=== PATIENT | male | born 1955 | race Caucasian/White ===

== ENCOUNTER 2021-02-01 10:31 | Inpatient (IN) | payer MEDICARE, SELFPAY ==
[2021-02-01] VITALS (15 sets, daily range): BP systolic 109–147; BP diastolic 62–83; PULSE 82–120; RESP 16–22; TEMP 37–37.3; O2SAT 92–96; BMI 35.4; BMI 35.6; BMI 36.3
--- NOTE | 2021-02-01 | IR_ITS ---
APPROVED REPORT Patient Location: Inpatient Pupil Personnel Services Director: SIMBA Dixon RT (R) PROCEDURES Left heart catheterization Left ventriculogram Selective coronary angiogram Selective engage left internal mammary artery Drug-eluting stent deployment to the proximal mid and distal dominant right coronary Attempted angioplasty of the ramus intermedius INDICATION Acute non-ST elevation myocardial infarction, Coronary artery disease, History of coronary bypass surgery Informed consent was obtained prior to the procedure. COMPLICATIONS None Estimated Blood Loss: Less than 10 mls TECHNIQUE One percent lidocaine used to anesthetize the right groin. The right femoral artery was accessed via the Seldinger technique and a 5 Kosovan sheath was placed in the right femoral artery. A JL 5 JR4 catheter used to perform left heart catheterization left ventriculogram selective coronary angiography as well as selective engage left internal mammary artery. At the end the diagnostic angiogram therapeutic heparin was administered and the 5 Kosovan sheath was exchanged for a 6 Kosovan sheath. A JR4 guide catheter was placed in the right coronary artery and a Choice PT wire was placed distally. A 3 mm x 38 mm resolute [place] stent was deployed at 20 and then 24 jono reducing the stenosis. An additional 3.5 x 12 mm resolute [place] stent was then placed distal to the first stent and deployed at 20 jono. The balloon was brought back and deployed at 20 and 24 jono up and down the 3 mm stent. Following this a 4 mm x 22 mm resolute [place] stent was deployed at 20 jono reducing the stenosis to 0%. The balloon was then advanced and deployed at 20 jono along the mid right coronary artery. After achieving excellent angiographic results with MARIFER-3 flow before and after the procedure the apparatus was removed and an EBU 4 guide catheter was placed in the left main artery. Initially a choice PT extra-support wire was used to traverse the subtotal occlusion of the ramus intermedius followed by a whisper medium support wire. The wire was placed in the proximal segment and a 1.5 x 12 mm balloon was then advanced in order to provide additional support and try to push through the subtotal occlusion. Despite an aggressive effort to revascularize ramus intermedius it was decided this vessel was not appropriate for ongoing intervention. At this point the apparatus was removed. The groin was reprepped gloves were changed sheath was removed good hemostasis was achieved using Perclose device patient was transferred to the postop coronary stable condition ANGIOGRAPHIC RESULTS The left main artery Is a distal 30% stenosis The left anterior descending artery Ostially occluded The circumflex artery Is codominant and gives rise to a high ramus intermedius +4 moderate sized obtuse marginal arteries. Ramus intermedius has a proximal calcified greater than 90% stenosis while the remaining vessels have mild 10 to 20% stenoses The right coronary artery Is a large dominant vessel has proximal 20 to 30% stenosis in mid vessel 70 to 80% stenosis with additional 50% calcified stenoses The HU ventriculogram reveals 55% The left ventricular end-diastolic pressure 15 mmHg The left internal mammary artery is widely patent to the LAD IMPRESSION Severe disease in the right coronary as described above Successful reconstruction of the proximal mid and distal dominant right coronary severe disease reduced to less than 10% with 3 contiguous drug-eluting stents Attempted angioplasty of the ramus intermedius Preserved ejection fraction Mild elevated LVEDP Patent JARVIS to LAD PLAN 1. Dual antiplatelet therapy 2. Patient has atrial fibrillation and should r
--- NOTE | 2021-02-01 10:49 | HMH.CNCARD ---
History of Present Illness Consult date: 02/01/21 Requesting physician: Darion Sarmiento Consult reason: chest pain Chief complaint: chest pain, CAD Additional Medical History:: 1. CAD-JUNIE (2012) and reportedly had minimally invasive CABG. 2. CTA of chest (2017) showed thoracic aneurysm of aorta of 4.3cm. DUE DEC 2020 3. DM controlled. Managed by PCP. 4. Hyperlipidemia, last LDL was 93, managed by PCP 5. Diastolic CHF-50-55% Mild MR. 6. Carotid ultrasound bilateral-No visible plaque with wide patency of both cervical ICA's. History of present illness: 65-year-old white male with history as noted above including coronary artery disease and coronary artery bypass surgery (minimally invasive) in 2012 [facility] [place]. Patient states he saw his primary care provider 3 days ago for presumed sinus infection and was given prescription for an antibiotic and also given a steroid shot in the office. After getting home later that evening he noticed his heart rate speeding up in home machine noted heart rate in the 160 bpm range. Yesterday morning upon waking he noticed substernal and left-sided chest discomfort reminiscent of his symptoms prior to his bypass in 2012. [facility] was noted to have an elevated troponin with transfer arranged to [facility] this AM. He has received IV Cardizem for his new diagnosis of atrial fibrillation which has helped with his chest discomfort as well. [facility]. EKG shows atrial fibrillation with no acute ST segment elevation. [facility] History I have reviewed the patient's past medical history: Yes Medical History: Reports:: Coronary Artery Disease, Diabetes Mellitus Type 2, Gastroesophageal Reflux Disease(GERD), Hyperlipidemia, Hypertension, Kidney Stones *Have you ever received a pneumonia vaccine?: No *Have you received a flu vaccine this season?: No Other Medical History: Reports: Arthritis Other Surgeries: Yes: No Previous Surgery - *Social History Smoking Status: Never smoker Alcohol Intake: never Substance Use Type: denies use *Occupational Status:: employed, retired *Travel in the last 8 weeks: Inside the [facility] Family Hx:: Unable to obtain Meds Home Medications Medication Instructions Recorded Confirmed Type aspirin 81 mg tablet,delayed 81 mg PO QDAY 06/15/17 01/05/20 History release insulin aspart prot-aspart 100 150 sliding scale dose SUB-Q QDAY 06/15/17 01/05/20 History unit/mL (70-30) subcutaneous cartridge metformin 500 mg tablet 500 mg PO BID 06/15/17 01/05/20 History pyridoxine (vitamin B6) 100 mg 100 mg PO DAILY tab 02/19/18 01/05/20 History tablet potassium chloride 10 mEq 10 meq PO DAILY 05/24/18 01/05/20 History tablet,extended release acetaminophen 500 mg tablet 500 mg PO Q6H PRN 12/03/18 01/05/20 History coenzyme Q10 400 mg capsule 400 mg PO DAILY 12/03/18 01/05/20 History famotidine 20 mg tablet 20 mg PO QDAY 12/03/18 01/05/20 History lactobacillus combination no.9 4 4,000 mmu cells PO DAILY 12/03/18 01/05/20 History billion cell capsule cholecalciferol (vitamin D3) 25 25 mcg PO DAILY 12/09/19 01/05/20 History mcg (1,000 unit) capsule cinnamon bark 500 mg capsule 500 mg PO DAILY cap 12/09/19 01/05/20 History flaxseed oil 1,000 mg capsule 1,000 mg PO DAILY cap 12/09/19 01/05/20 History zinc 50 mg tablet 50 mg PO DAILY 12/09/19 01/05/20 History hydrochlorothiazide 25 mg tablet 25 mg PO DAILY #90 tab 07/19/20 07/19/20 Rx magnesium 250 mg tablet 250 mg PO DAILY tab 07/19/20 History atorvastatin 80 mg tablet 80 mg PO DAILY #90 tab 10/22/20 Rx amlodipine 10 mg tablet 10 mg PO QDAY #90 tab 11/26/20 Rx isosorbide mononitrate 30 mg 30 mg PO DAILY #90 tab 11/26/20 Rx tablet,extended release 24 hr bisoprolol fumarate 5 mg tablet 5 mg PO DAILY #90 tab 12/10/20 Rx doxazosin 2 mg tablet See Rx Instructions .R
--- NOTE | 2021-02-01 11:00 | ECG_ITS ---
APPROVED REPORT Exam: Resting ECG HR:85 bpm ECG Measurements Heart Rate 85 AXES QRSd 78 QRS 4 QT 350 T 46 QTc 416 Conclusion Atrial fibrillation Inferior infarct, age undetermined Abnormal ECG Electronically signed by : Adal Villanueva MD 02/01/2021 16:42:01
--- NOTE | 2021-02-01 11:15 | CA_ITS ---
APPROVED REPORT EXAM: Comprehensive 2D, Doppler, and color-flow Echocardiogram Nuclear Supervising Operator: Ruchi Nieto RT(R) Ht: 6 ft 1 in Wt: 269lbs BSA: 2.44 BP: 114/71 mmHg Indications: CP, HTN, DM, hyperlipidemia, CAD, CABG, new onset AFIB, GERD 2D Dimensions Aortic Root 2.43 cm M: 3.1 - 3.7 LVEF (Figueroa's) 44.70 % M: 52 - 72 LV Volume 178.90 mL M: 62 - 150 LV Volume Index 73.31 mL/m2 M: 34 - 74 LA Volume 66.90 mL LA Volume Index 27.41 mL/m2 (M/F) 16-34 M-Mode Dimensions RVDd 1.90 cm (0.9-2.6) LA Diam 4.43 cm (1.9-4.0) LVDd 6.21 cm (3.5-5.7) Ao Diam 3.41 cm (2.0-3.7) LVDs 4.90 cm (3.5-5.7) IVSd 0.93 cm (0.6-1.1) PWd 0.93 cm (0.6-1.1) EF (Teich) 42.10% FS 21.10% EDV (Teich) 194.70 mL ESV (Teich) 112.80 mL Tricuspid Valve TR P. Velocity 171.00 cm/s RAP Estimate 10.00 mmHg RVSP 21.70 mmHg Left Ventricle Left atrium is mildly enlarged, left ventricle is normal size, mild concentric left ventricular hypertrophy, visually estimated ejection fraction 55% with no regional wall motion abnormality, endocardial surfaces are poorly visualized. Diastolic parameters are inconclusive. Right Ventricle Right atrium and right ventricle are normal size and contractility. Aortic Valve Aortic valve is thickened and calcified without Doppler evidence of aortic stenosis or aortic insufficiency. Mitral Valve Mitral valve is grossly normal, there is trace mitral regurgitation. Tricuspid Valve Tricuspid valve grossly normal, there is trace tricuspid regurgitation, tricuspid regurgitation jet velocity is inadequate for calculation of the right ventricular systolic pressure. Pulmonic Valve Pulmonic valve is poorly visualized. Great Vessels Aortic root is normal size. Pericardium No significant pericardial effusion noted. Conclusion 1. Normal left ventricular size, mild concentric left ventricular hypertrophy, visually estimated ejection fraction 55% with no regional wall motion abnormality, diastolic parameters are inconclusive. 2. Thickened and calcified aortic valve without Doppler evidence of aortic stenosis or aortic insufficiency. 3. Trace mitral and tricuspid regurgitation. 4. No significant pericardial effusion noted. Electronically signed by : Alexandre Weller MD 02/01/2021 19:01:36
--- NOTE | 2021-02-01 14:53 | CT_ITS ---
PROCEDURE INFORMATION: Exam: CT Chest Without Contrast; Diagnostic Exam date and time: 02/01/2021 2:53 PM Age: 65 years old Clinical indication: Shortness of breath; Prior surgery; Surgery date: 6+ months; Surgery type: Cabg, heart stents; Additional info: Thoracic aortic aneurysm TECHNIQUE: Imaging protocol: Diagnostic computed tomography of the chest without contrast. Radiation optimization: All CT scans at this facility use at least one of these dose optimization techniques: automated exposure control; mA and/or kV adjustment per patient size (includes targeted exams where dose is matched to clinical indication); or iterative reconstruction. COMPARISON: DX CHEST SINGLE VIEW/PORTABLE 02/01/2021 1:07 AM FINDINGS: Lungs: Mild left lung base subsegmental atelectasis versus infiltrate. Ovoid, flat 6 mm pulmonary nodularity along the right minor fissure (axial series 3, image 43) may relate to intrapulmonary lymph node. Pleural spaces: Small left and trace right pleural effusions. Heart: Cardiac stent noted. Atherosclerotic calcifications affect the coronary arteries. Mediastinal space: Diffuse esophageal dilatation and mural prominence, which may relate to esophagitis in the appropriate clinical context. Pulmonary arteries: Thoracic ascending aortic aneurysm measuring 4.7 cm AP dimension at the level of the main pulmonary artery. Aorta: Cardiac motion limits assessment of the ascending aorta. The aorta is otherwise unremarkable. No aortic aneurysm. Lymph nodes: Unremarkable. No enlarged lymph nodes. Kidneys and ureters: Incompletely visualized left kidney stone. Bones/joints: There are age-related degenerative changes of the visualized spine. No acute fracture. Contiguous fusion of anterior osteophytes in the thoracic spine compatible with diffuse idiopathic skeletal hyperostosis. Soft tissues: Unremarkable. IMPRESSION: 1. Small left and trace right pleural effusions. 2. Mild left lung base subsegmental atelectasis versus infiltrate.. 3. Ovoid, flat 6 mm pulmonary nodularity along the right minor may relate to intrapulmonary lymph node. Recommend CT Chest at 6-12 months to confirm persistence of the nodule, then CT Chest at 3 years and 5 years. (Reference: Van) 4. Thoracic ascending aortic aneurysm measuring 4.7 cm AP dimension at the level of the main pulmonary artery. 5. Diffuse esophageal dilatation and mural prominence, which may relate to esophagitis in the appropriate clinical context. 6. Incompletely visualized left kidney stone. REFERENCES: Van Wagner, et al. Guidelines for Management of Incidental Pulmonary Nodules Detected on CT Images: From the Fleischner Society 2017. Radiology. 2017;284(1):228-243.
[2021-02-01 16:29] LABS: CATHL Activated Clotting Time 298 SEC (74-125)
[2021-02-01 16:31] LABS: CATHL Activated Clotting Time > 400 SEC (74-125)
[2021-02-01 17:33] LABS: POC Glucose,Bedside 189 (70-110)
--- NOTE | 2021-02-01 18:05 | PC.NURSE ---
PT IS RESTING IN BED. ALERT AND ORIENTED X4. PT ARRIVED BACK TO THE FLOOR FROM THE [facility] AT 1320. VSS. CONTROLLED AFIB ON THE MONITOR. PALPABLE PULSES. AT 1615 WHEN PT RECEIVED PO CARDIZEM DOSE PT HAD A MODERATE SIZE HEMATOMA W/O BLEEDING/BRUISING NOTED TO CATH SITE. [facility] NOTIFIED. MANUAL PRESSURE HELD FOR [address] AT 1715 SITE IS SOFT WITH VERY MINIMAL BRUISING. PT REMAINED FLAT TILL 1815. CARDIZEM DRIP WAS STOPPED AT 1645 (30 MIN AFTER PO DOSE). LUNG SOUNDS CLEAR. ABDOMEN SOFT/NON TENDER WITH ACTIVE BOWEL SOUNDS. INSULIN PUMP NOTED TO THE LEFT SIDE OF THE ABDOMEN. BLOOD SUGAR BEFORE DINNER WAS 189. WILL CONTINUE TO MONITOR.
[2021-02-02] VITALS (8 sets, daily range): BP systolic 105–162; BP diastolic 43–116; PULSE 81–130; RESP 20–26; TEMP 36.9–37.3; O2SAT 92–99
--- NOTE | 2021-02-02 03:30 | PC.NURSE ---
notify dr. sheppard of elevated hr going up to [address] call [address] minor awaiting to hear from dr minor.
--- NOTE | 2021-02-02 03:41 | PC.NURSE ---
new order recieved from dr minor
[2021-02-02 06:53] LABS: POC Glucose,Bedside 173 (70-110)
[2021-02-02 07:42] LABS: Basophils % 0.1 % (0.1-2.0); Eosinophils % 0.2 % (0.1-12.0); Hematocrit 34.5 % (42.0-52.0); Hemoglobin 11.6 g/dL (14.1-18.0); Lymphocytes # 1.3 K/mm3 (0.7-4.5); Lymphocytes % 8.3 % (10-50); Mean Corpuscular HGB Conc 33.7 g/dL (31.8-35.4); Mean Corpuscular Hemoglobin 29.9 pg (27.0-31.2); Mean Corpuscular Volume 88.9 fl (80-94); Mean Platelet Volume 8.1 fl (7.4-10.4); Monocytes # 0.6 K/mm3 (0.1-1.0); Monocytes % 4.1 % (1.7-9.3); Neutrophils # 13.8 K/mm3 (1.8-7.8); Neutrophils % 87.4 % (37.0-80.0); Platelet Count 371 K/mm3 (142-424); Red Blood Count 3.88 M/mm3 (4.60-6.20); Red Cell Distribution Width 14.7 % (11.5-17.5); White Blood Count 15.8 K/mm3 (4.8-10.8)
[2021-02-02 07:46] LABS: MANUAL DIFFERENTIAL MANUAL DIFFERENTIAL (MANUAL DIFF)
[2021-02-02 07:57] LABS: Anion Gap 19.3 mEq/L (5-15); Blood Urea Nitrogen 30 mg/dl (9-20); Calcium 8.3 mg/dl (8.4-10.2); Carbon Dioxide 19 mmol/L (22.0-30.0); Chloride 102 mmol/L (98-107); Creatinine Clearance Estimated 107 mL/min (50-200); Estimated Glomerular Filt Rate 61 ml/min (>60); GFR (African American) 73 ML/MIN (>60); Glucose 166 mg/dl (74-100); Potassium 3.3 mmoL/L (3.5-5.1); Sodium 137 mmol/L (136-145)
[2021-02-02 09:00] LABS: Lymphocytes % 12 % (10-50); Monocytes % 1 % (2-9); Neutrophils % 87 % (42-76); Platelet Estimate Normal; Total Cells Counted 100
[2021-02-02 10:50] LABS: Coronavirus 19, PCR Not Detected (NotDetected); Influenza A, PCR Not Detected (NotDetected); Influenza B, PCR Not Detected (NotDetected)
--- NOTE | 2021-02-02 11:11 | HMH.HP ---
*Admission Date: 02/01/21 *Chief complaint: chest pain *History of present illness: this patient was admitted with history as noted above including coronary artery disease and coronary artery bypass surgery (minimally invasive) in 2012 was transferred from [facility] for non-ST elevation [place]. Patient states he saw his primary care provider 3 days ago for presumed sinus infection and was given prescription for an antibiotic and also given a steroid shot in the office. After getting home later that evening he noticed his heart rate speeding up in home machine noted heart rate in the 160 bpm range. Yesterday morning upon waking he noticed substernal and left-sided chest discomfort reminiscent of his symptoms prior to his bypass in 2012. He went to [facility] for evaluation was noted to have an elevated troponin with transfer arranged to [facility] this AM. He has received IV Cardizem for his new diagnosis of atrial fibrillation which has helped with his chest discomfort as well. Troponin at the [facility] was 2.9. EKG shows atrial fibrillation with no acute ST segment elevation. NSTEMI, plan to proceed to [facility]. Risk, benefits and procedure explained to the patient he agrees to proceed. 2. New onset A. fib, continue IV cardizem and pt received lovenox at [facility]. Start Xarelto after cardiac cath. 3. CAD with prior minimally invasive CABG, 2012 4. DM, type 2 on insulin pump, per PCP 5. HTN 6. HLD, continue statin therapy. 7. Thoracic aortic aneurysm of 4.3cm, will need follow up evaluation during this admission. pt admitted and will have card cath- [facility] History I have reviewed the patient's past medical history: Yes Medical History: Reports:: Arrhythmia, Atrial Fibrillation ([place] O[place]), Cancer (PROSTATE), Coronary Artery Disease, Diabetes Mellitus Type 2, Gastroesophageal Reflux Disease(GERD), Hyperlipidemia, Hypertension, Kidney Stones Denies:: Diabetes Mellitus Type 1, MRSA *Have you ever received a pneumonia vaccine?: No *Have you received a flu vaccine this season?: No Other Medical History: Reports: Arthritis Laterality Cases: Left: Total Hip Replacement Other Surgeries: Yes: No Previous Surgery, Cardiac Catheterization Amputation: No Fractures: No - *Social History Last grade of school completed: High school graduate Smoking Status: Never smoker Alcohol Intake: never Substance Use Type: denies use *Occupational Status:: retired Housing: house Household Members: spouse *Travel in the last 8 weeks: Inside the [place] Family Hx:: Unable to obtain Review of Systems - Review of Systems Review of systems:: pertinent systems reviewed and negative unless documented below - Constitutional Denies fever(s) - Eyes Denies change in vision - ENT Denies sore throat - *Cardiovascular Reports chest pain, Reports shortness of breath - *Respiratory Denies cough - *Gastrointestinal Denies abdominal pain - *Genitourinary Denies blood in urine - *Musculoskeletal Denies joint pain - Integumentary/Breasts Denies rash - *Neurologic Denies seizure-like activity - Psychiatric Denies anxiety Meds Home Medications Medication Instructions Recorded Confirmed Type aspirin 81 mg tablet,delayed 81 mg PO DAILY 06/15/17 02/02/21 History release metformin 500 mg tablet 500 mg PO BIDWMEAL 06/15/17 02/02/21 History pyridoxine (vitamin B6) 100 mg 100 mg PO DAILY tab 02/19/18 02/01/21 History tablet potassium chloride 10 mEq 10 meq PO DAILY 05/24/18 02/01/21 History tablet,extended release acetaminophen 500 mg tablet 500 mg PO Q6HP PRN 12/03/18 02/02/21 History coenzyme Q10 400 mg capsule 400 mg PO DAILY 12/03/18 02/01/21 History famotidine 20 mg tablet 20 mg PO DAILY 12/03/18 02/02/21 History cholecalciferol (vitamin D3) 25 25 mcg PO DAILY 12/09/19 02/01/21 History mcg (1,000 unit) capsule cinnamon bark 500 mg capsule 500 mg PO DAILY cap
--- NOTE | 2021-02-02 13:49 | HMH.PHAVTE ---
[facility] Pharmacy VTE Monitoring - Patient Demographics Admission date: 02/01/21 Report Date: 02/02/21 Time: 13:49 Allergies/Adverse Reactions: Patient Allergies No Known Allergies Allergy (Verified 07/19/20 11:36) Height: 1.85 m Weight: 124.738 kg Patient Problems: Current Active Problems NSTEMI (non-ST elevated myocardial infarction) (Acute) New onset a-fib (Acute) Thoracic aortic aneurysm without rupture (Acute) Aneurysm of thoracic aorta (Acute) Diastolic dysfunction (Chronic) DM (diabetes mellitus) (Chronic) HLD (hyperlipidemia) (Chronic) Coronary arteriosclerosis (Chronic) - VTE Risk Labs: VTE Related Lab Results Hgb 11.6 g/dL (14.1-18.0) L 02/02/21 06:37 Hct 34.5 % (42.0-52.0) L 02/02/21 06:37 Plt Count 371 K/mm3 (142-424) 02/02/21 06:37 BUN 30 mg/dl (9-20) H 02/02/21 06:37 Creatinine 1.20 mg/dl (0.66-1.25) 02/02/21 06:37 Estimated Creat Clear 107 mL/min (50-200) 02/02/21 06:37 VTE Score: 2 - Prophylaxis VTE Prophylaxis Ordered?: Yes Types of VTE Prophylaxis: TEDS Knee High Location of Applied Device: Bilateral Lower Extremeties
--- NOTE | 2021-02-02 16:55 | HMH.PHAINT ---
MEDICATION RECONCILIATION COMPLETED ON PATIENT USING EXTERNAL FILL HISTORY FROM PHARMACY. -AJITH SILVESTRE, BETTYD
--- NOTE | 2021-02-02 19:53 | PC.NURSE ---
PT IS RESTING IN BED. ALERT AND ORIENTED X4. PT TOLERATED SITTING UP IN THE CHAIR FOR SEVERAL HOURS THIS SHIFT. AMBULATING IN THE ROOM. CATH SITE DRESSING C/D/I WITH MODERATE BRUISING NOTED. INSULIN PUMP NOTED TO THE LEFT SIDE OF THE ABDOMEN. LUNG SOUNDS CLEAR. VSS. CONTROLLED AFIB ON TELEMETRY. WILL CONTINUE TO MONITOR.
[2021-02-03] VITALS: BP 136/76; PULSE 100; PULSE 90; RESP 21; TEMP 37.4; O2SAT 93
--- NOTE | 2021-02-03 02:50 | PC.NURSE ---
No acute changes t/o shift. Pt is A/O x4. Rt femoral cath site dressing is C/D/I with some bruising noted. Pt denies any pain. Insulin pump to left side of abdomen. VSS, will continue to monitor.
[2021-02-03 04:00] VITALS: BP 153/96; PULSE 106; PULSE 110; RESP 16; TEMP 37.1; O2SAT 98
[2021-02-03 05:04] VITALS: BMI 35.3
[2021-02-03 07:15] LABS: Basophils % 0.1 % (0.1-2.0); Eosinophils # 0.1 K/mm3 (0.0-0.4); Eosinophils % 0.5 % (0.1-12.0); Hematocrit 33.9 % (42.0-52.0); Hemoglobin 10.8 g/dL (14.1-18.0); Mean Corpuscular HGB Conc 31.7 g/dL (31.8-35.4); Mean Corpuscular Hemoglobin 28.9 pg (27.0-31.2); Mean Corpuscular Volume 90.9 fl (80-94); Mean Platelet Volume 7.9 fl (7.4-10.4); Monocytes # 0.5 K/mm3 (0.1-1.0); Monocytes % 4.4 % (1.7-9.3); Neutrophils # 9.8 K/mm3 (1.8-7.8); Platelet Count 386 K/mm3 (142-424); Red Blood Count 3.73 M/mm3 (4.60-6.20); Red Cell Distribution Width 14.8 % (11.5-17.5); White Blood Count 11.4 K/mm3 (4.8-10.8)
[2021-02-03 07:18] LABS: MANUAL DIFFERENTIAL MANUAL DIFFERENTIAL (MANUAL DIFF)
[2021-02-03 07:34] LABS: Anion Gap 20.5 mEq/L (5-15); Blood Urea Nitrogen 40 mg/dl (9-20); Calcium 8.1 mg/dl (8.4-10.2); Carbon Dioxide 19 mmol/L (22.0-30.0); Chloride 100 mmol/L (98-107); Creatinine Clearance Estimated 96 mL/min (50-200); Estimated Glomerular Filt Rate 55 ml/min (>60); GFR (African American) 67 ML/MIN (>60); Glucose 389 mg/dl (74-100); Potassium 3.5 mmoL/L (3.5-5.1); Sodium 136 mmol/L (136-145)
[2021-02-03 08:00] VITALS: BP 143/77; PULSE 107; RESP 26; TEMP 37; O2SAT 95
--- NOTE | 2021-02-03 08:58 | XR_ITS ---
PROCEDURE INFORMATION: Exam: XR Chest Exam date and time: 02/03/2021 8:58 AM Age: 65 years old Clinical indication: Pain; On breathing; Prior surgery; Surgery date: 6+ months; Surgery type: Cabg stents; Additional info: SOB TECHNIQUE: Imaging protocol: XR of the chest. Views: 1 view. COMPARISON: CT CHEST WO CON 02/01/2021 7:11 PM FINDINGS: Lungs: Hypoventilatory changes of the lungs, with perihilar vascular crowding and a diffuse increase in pulmonary parenchymal density. Mild bibasilar atelectasis. Pleural spaces: Unremarkable. No pleural effusion. No pneumothorax. Heart/Mediastinum: Upper limits normal cardiac silhouette. Diaphragm: There is nonspecific elevation of the right hemidiaphragm. Bones/joints: Degenerative changes of the spine. IMPRESSION: Hypoventilatory changes with mild bibasilar atelectasis.
[2021-02-03 09:39] LABS: Lymphocytes % 6 % (10-50); Monocytes % 4 % (2-9); Neutrophils % 90 % (42-76); Total Cells Counted 100
[2021-02-03 09:40] LABS: Platelet Estimate Normal
--- NOTE | 2021-02-03 11:29 | HMH.DCSUM ---
General - General Admission date:: 02/01/21 Discharge date: 02/03/21 HPI HPI: this patient was admitted with history as noted above including coronary artery disease and coronary artery bypass surgery (minimally invasive) in 2012 was transferred from [facility] for non-ST elevation AR. Patient states he saw his primary care provider 3 days ago for presumed sinus infection and was given prescription for an antibiotic and also given a steroid shot in the office. After getting home later that evening he noticed his heart rate speeding up in home machine noted heart rate in the 160 bpm range. Yesterday morning upon waking he noticed substernal and left-sided chest discomfort reminiscent of his symptoms prior to his bypass in 2012. He went to [facility] for evaluation was noted to have an elevated troponin with transfer arranged to [facility] this AM. He has received IV Cardizem for his new diagnosis of atrial fibrillation which has helped with his chest discomfort as well. [facility] 2.9. EKG shows atrial fibrillation with no acute ST segment elevation. NSTEMI, plan to proceed to [facility]. Risk, benefits and procedure explained to the patient he agrees to proceed. 2. New onset A. fib, continue IV cardizem and pt received lov[facility] at [facility]. Start Xarelto after cardiac cath. 3. CAD with prior minimally invasive CABG, 2012 4. DM, type 2 on insulin pump, per PCP 5. HTN 6. HLD, continue statin therapy. 7. Thoracic aortic aneurysm of 4.3cm, will need follow up evaluation during this admission. pt admitted and will have card cath- Hospital Course Hospital Course: Laboratory Tests 02/01/21 02/01/21 02/01/21 12:23 12:48 16:41 WBC RBC Hgb Hct MCV MCH MCHC RDW Plt Count MPV Neut % (Auto) Lymph % (Auto) [place] % (Auto) Eos % (Auto) Baso % (Auto) Neut # (Auto) Lymph # (Auto) [place] # (Auto) Eos # (Auto) Baso # (Auto) Total Counted Neutrophils % (Manual) Lymphocytes % (Manual) Monocytes % (Manual) Platelet Estimate Activated Clotting Time > 400 H* 298 H* D Sodium Potassium Chloride Carbon Dioxide Anion Gap BUN Creatinine Estimated Creat Clear Estimated GFR Est GFR ( Amer) Glucose POC Glucose 189 H Calcium SARS-CoV-2 (PCR) Influenza A Untype (PCR) Influenza Type B (PCR) 02/02/21 02/02/21 02/02/21 06:31 06:37 06:37 WBC 15.8 H RBC 3.88 L Hgb 11.6 L Hct 34.5 L MCV 88.9 MCH 29.9 MCHC 33.7 RDW 14.7 Plt Count 371 MPV 8.1 Neut % (Auto) 87.4 H Lymph % (Auto) 8.3 L [place] % (Auto) 4.1 Eos % (Auto) 0.2 Baso % (Auto) 0.1 Neut # (Auto) 13.8 H Lymph # (Auto) 1.3 [place] # (Auto) 0.6 Eos # (Auto) 0.0 Baso # (Auto) 0.0 Total Counted 100 Neutrophils % (Manual) 87 H Lymphocytes % (Manual) 12 Monocytes % (Manual) 1 L Platelet Estimate Normal Activated Clotting Time Sodium 137 Potassium 3.3 L Chloride 102 Carbon Dioxide 19 L Anion Gap 19.3 H BUN 30 H Creatinine 1.20 Estimated Creat Clear 107 Estimated GFR 61 Est GFR ( Amer) 73 Glucose 166 H POC Glucose 173 H Calcium 8.3 L SARS-CoV-2 (PCR) Influenza A Untype (PCR) Influenza Type B (PCR) 02/02/21 02/03/21 02/03/21 10:44 06:39 06:39 WBC 11.4 H D RBC 3.73 L Hgb 10.8 L Hct 33.9 L MCV 90.9 MCH 28.9 MCHC 31.7 L RDW 14.8 Plt Count 386 MPV 7.9 Neut % (Auto) 86.0 H Lymph % (Auto) 9.0 L [place] % (Auto) 4.4 Eos % (Auto) 0.5 Baso % (Auto) 0.1 Neut # (Auto) 9.8 H Lymph # (Auto) 1.0 [place] # (Auto) 0.5 Eos # (Auto) 0.1 Baso # (Auto) 0.0 Total Counted 100 Neutrophils % (Manual) 90 H Lymphocytes % (Manual) 6 L Monocytes % (Manual) 4 Platelet Es
[2021-02-03 12:00] VITALS: BP 143/77; PULSE 100; PULSE 96; RESP 24; TEMP 36.5; O2SAT 94
--- NOTE | 2021-02-03 13:01 | HMH.PHACLD ---
Vinicius Morrow has received discharge medication counseling on the following medications: ASPIRIN BRILINTA BISOPROLOL LIPITOR PATIENT HAS NOT BEEN ON AN ACEI. PER DR. FERNANDEZ NOT STARTING ACEI AT THIS TIME DUE TO BEING ON SO MANY BLOOD PRESSURE MEDICATIONS AT HIGHER DOSES. STOPPING AMLODIPINE. NEW PRESCRIPTIONS SENT TO [facility] IN [place]. PATIENT VERBALZIED UNDERSTANDING AND HAD NO QUESTIONS AT THIS TIME. -AJITH SILVESTRE, BETTYD
[2021-02-03 16:13] VITALS: PULSE 104
== END 2021-02-03 14:50 | disposition home or self-care (01) | DRG 247 ==
PROVIDERS: Emergency Medicine; Internal Medicine; Admitting Provider Family Medicine; Visit Provider Family Medicine
PROC: 027036Z Dilation of Coronary Artery, One Artery with Three Drug-eluting Intraluminal Devices, Percutaneous Approach (ICD-10-PCS; principal; 2021-02-01 11:00)
DX: I21.4 Non-ST elevation (NSTEMI) myocardial infarction (principal); I48.91 Unspecified atrial fibrillation; I25.10 Atherosclerotic heart disease of native coronary artery without angina pectoris; E11.9 Type 2 diabetes mellitus without complications; I10 Essential (primary) hypertension; Z85.46 Personal history of malignant neoplasm of prostate; K21.9 Gastro-esophageal reflux disease without esophagitis; E78.5 Hyperlipidemia, unspecified; Z87.442 Personal history of urinary calculi; Z79.4 Long term (current) use of insulin; Z96.41 Presence of insulin pump (external) (internal); Z96.642 Presence of left artificial hip joint; E66.9 Obesity, unspecified; Z68.35 Body mass index [BMI] 35.0-35.9, adult; I71.2 Thoracic aortic aneurysm, without rupture; Z95.1 Presence of aortocoronary bypass graft; M19.90 Unspecified osteoarthritis, unspecified site
CPT/HCPCS: 36415; 71045; 71250; 80048; 82962; 85007; 85025; 85347; 92941; 93005; 93306; 93459; 99152; 99153; C1725; C1760; C1769; C1874; C1894; C9606; C9803; J1644; Q9967; U0003; U0005

== ENCOUNTER → 2021-02-11 09:26 | Outpatient (CLI) | payer MEDICARE, SELFPAY ==
[2021-02-11 09:51] LABS: Hematocrit 37.1 % (42.0-52.0)
[2021-02-11 10:04] LABS: Blood Urea Nitrogen 24 mg/dl (9-20); Estimated Glomerular Filt Rate 84 ml/min (>60); GFR (African American) 102 ML/MIN (>60)
== END ==
PROVIDERS: Visit Provider Internal Medicine
DX: Z01.812 Encounter for preprocedural laboratory examination (principal); I25.10 Atherosclerotic heart disease of native coronary artery without angina pectoris
CPT/HCPCS: 36415; 82565; 84520; 85014; 85018

== ENCOUNTER → 2021-10-24 09:40 | Outpatient (CLI) | payer MEDICARE, SELFPAY ==
--- NOTE | 2021-10-24 09:44 | CT_ITS ---
FINAL REPORT CLINICAL HISTORY: thoracic aortic aneursym f/u COMPARISON: February 01, 2021 FINDINGS: Thin section axial CT images of the chest were obtained with contrast. 3D reformatted images were also obtained. This study was performed with techniques to keep radiation doses as low as reasonably achievable (ALARA). Individualized dose reduction techniques using automated exposure control or adjustment of mA and/or kV according to the patient's size were employed. There is no evidence of pulmonary embolism. There is a stable 4.7 cm ascending aortic aneurysm. There is no evidence of mediastinal or hilar mass or adenopathy. A 6 mm nodule near the minor fissure favors a calcified granuloma and is stable. A 2 mm left lower lobe nodule on image 51 was probably obscured by atelectasis on the prior exam. No localized inflammatory process is seen within the lungs. Limited images of the upper abdomen demonstrate a 15 mm low-attenuation nodule in the right upper quadrant. Uncertain if this is a renal cyst IMPRESSION: No evidence of pulmonary embolism. Stable ascending thoracic aortic aneurysm. Low-attenuation nodule in the right upper quadrant. Uncertain if this represents a renal cyst. If indicated, renal mass protocol CT. Reviewed, Interpreted and Dictated by Christiano Trinidad III, MD Transcribed by Parker Benjamin Authenticated and [facility]
[2021-10-24 10:10] LABS: Blood Urea Nitrogen 31 mg/dl (9-20); Estimated Glomerular Filt Rate 60 ml/min (>60); GFR (African American) 73 ML/MIN (>60)
== END ==
PROVIDERS: PCP Nurse Practitioner Family; Visit Provider Nurse Practitioner Family
DX: I71.2 Thoracic aortic aneurysm, without rupture (principal)
CPT/HCPCS: 36415; 71275; 82565; 84520; Q9967

== ENCOUNTER → 2022-05-05 12:29 | Outpatient (CLI) | payer MEDICARE, SELFPAY ==
--- NOTE | 2022-05-05 12:34 | CT_ITS ---
FINAL REPORT CLINICAL HISTORY: thoracic arotic aneurysm followup COMPARISON: October 24, 2021 FINDINGS: Thin section axial CT images of the chest were obtained with contrast. 3D reformatted images were also obtained. This study was performed with techniques to keep radiation doses as low as reasonably achievable (ALARA). Individualized dose reduction techniques using automated exposure control or adjustment of mA and/or kV according to the patient''s size were employed. There is a 32 mm mass in the right atrium, favor blood clot or neoplasm. Artifact partially obscures the lower lobe pulmonary arterial branches. There is a small focal segmented pulmonary embolism in the posterior left lower lobe. The ascending aorta measures 43 mm, stable. There is no dissection. There is no evidence of mediastinal or hilar mass or adenopathy. There is a 6 mm partially calcified granuloma in the minor fissure stable. There is mild pulmonary scarring. No localized inflammatory process is seen within the lungs. Limited images of the upper abdomen demonstrate a fatty infiltrated liver. IMPRESSION: Right atrial mass, favor blood clot over neoplasm. Small left lower lobe pulmonary embolism. These findings were reported to Yuli in the ordering provider's office on May 05, 2022 at 1:46 p.m. Reviewed, Interpreted and Dictated by Christiano Trinidad III, MD Transcribed by Estephania Candelario Authenticated and [facility]
== END ==
PROVIDERS: PCP Nurse Practitioner Family; Visit Provider Physician Assistant
DX: I71.20 Thoracic aortic aneurysm, without rupture, unspecified (principal)
CPT/HCPCS: 71275; Q9967

== ENCOUNTER 2022-05-23 07:23 | Day surgery (SDC) | payer MEDICARE, SELFPAY ==
[2022-05-23] VITALS (15 sets, daily range): BP systolic 116–198; BP diastolic 70–102; PULSE 60–69; RESP 12–20; O2SAT 93–100; BMI 37.7
--- NOTE | 2022-05-23 08:26 | CA_ITS ---
APPROVED REPORT EXAM: Comprehensive 2D, Doppler, and color-flow Echocardiogram [employer] Hand: Itzel LeeMILY Ht: 6 ft 1 in Wt: 286lbs BSA: 2.50 BP: 123/66 mmHg Indications: RT ATRIAL MASS SEEN ON CTA CHEST,CAD,CABG,DM,HTN,HLD Procedure After obtaining informed consent, patient underwent transesophageal echo in the [facility]. Transesophageal probe was inserted and advanced into esophagus without difficulty by Dr. Natan Price. The AUDREY was performed without complications. Throughout the procedure, the blood pressure, pulse oximetry, cardiac rhythm, and rate were monitored. The patient tolerated the procedure without adverse effects. Recovery from conscious sedation was uneventful and vital signs were stable. Left Ventricle Left ventricle is normal size, estimated ejection fraction from the obtained views is 55% with no regional wall motion abnormality in the visualized segments. Right Ventricle Right ventricle is mildly enlarged with normal contractility Atria Left atrium is mildly enlarged. Right atrium is mildly enlarged, there is large echodense mobile mass seen, this likely represents a thrombus. Intra-atrial septum is intact, there is no flow across the interatrial septum, agitated saline contrast study did not identify intracardiac shunt. Aortic Valve Aortic valve is thickened and calcified with no significant restriction of leaflet mobility, there is no aortic insufficiency. Mitral Valve Mitral valve structure normal, there is mild mitral regurgitation. Tricuspid Valve Tricuspid valve leaflets are not well visualized, there is mild tricuspid regurgitation. Pulmonic Valve Pulmonic valve is grossly normal. Great Vessels Aortic root, ascending aorta and descending thoracic aorta there is no aneurysm or dissection. Inferior vena cava is not visualized. Pericardium No significant pericardial effusion noted. Conclusion 1. Normal left ventricular size preserved left ventricular systolic function. 2. Large echodense mobile mass seen in the right atrium this likely represents a right atrial thrombus. 3. Mild mitral and tricuspid regurgitation. 4. Other ancillary findings as described above. Electronically signed by : Alexandre Weller MD 05/23/2022 13:03:55
[2022-05-23 08:47] LABS: Basophils % 0.5 % (0.1-2.0); Eosinophils # 0.2 K/mm3 (0.0-0.4); Hematocrit 36.2 % (42.0-52.0); Hemoglobin 11.9 g/dL (14.1-18.0); Lymphocytes # 2.9 K/mm3 (0.7-4.5); Lymphocytes % 30.2 % (10-50); Mean Corpuscular HGB Conc 32.9 g/dL (31.8-35.4); Mean Corpuscular Hemoglobin 29.5 pg (27.0-31.2); Mean Corpuscular Volume 89.7 fl (80-94); Mean Platelet Volume 8.9 fl (7.4-10.4); Monocytes # 0.5 K/mm3 (0.1-1.0); Monocytes % 4.6 % (1.7-9.3); Neutrophils % 62.7 % (37.0-80.0); Platelet Count 328 K/mm3 (142-424); Red Blood Count 4.04 M/mm3 (4.60-6.20); Red Cell Distribution Width 15.1 % (11.5-17.5); White Blood Count 9.6 K/mm3 (4.8-10.8)
--- NOTE | 2022-05-23 11:40 | SUR.PHASEII ---
Dr Caruso spoke to in regarding patient report from [facility], awaiting call from in regards to transferring of patient
--- NOTE | 2022-05-23 12:00 | EXP.ANES.CKL ---
[facility] Disclaimer: The information contained in this section may have been updated after the patient was seen, as this information can be updated by other users. Medical History (Updated 05/23/22 @ 08:53 by Ally Oliveros RN) Aneurysm of thoracic aorta Hyperlipidemia Hypertension Surgical History (Updated 05/23/22 @ 08:53 by Ally Oliveros RN) Hx of CABG Family History (Updated 05/23/22 @ 08:52 by Ally Oliveros RN) Other No significant family history Social History (Updated 05/23/22 @ 08:54 by Ally Oliveros RN) Smoking Status: Never smoker alcohol intake: never substance use type: denies use current occupational status: retired Travel in the last 8 weeks: Inside the [place] household members: spouse housing: house caffeine: Yes [facility] Anesthesia Checklist Patient Identification Patient Identification: Arm Band and Family Structural Data Admitted From: Direct Admit Planned Operative Procedure/s: AUDREY procedure Consent for Planned Operative Procedure(s) Verified: Yes Verified Documents: Surgical Consent and History and Physical NPO Status Verified Time NPO: 00:00 Additional verifications Patient : No Anesthesia Reactions: No Hx Blood Transfusions: Yes Blood Transfusion Reaction: No Cephalosporin Allergy: No Previous Colonoscopy: No Airway Assessment Dentition: Edentulous Neurological Assessment Level of Consciousness: Awake, Alert, Appropriate, Follows Commands and Drowsy Hx Seizures: No Numbness or tingling in extremities: No Anesthesia Plan Anesthesia Risk discussed: Yes ASA Class: III Anesthesia Type: MAC
--- NOTE | 2022-05-23 12:55 | SUR.PHASEII ---
Report called to [facility] in [facility] ambulance notified of transfer, family at bedside
--- NOTE | 2022-05-23 13:08 | SUR.PHASEII ---
[facility]aus here to transport pt, other truck was toned out and this truck has to wait to transport until cleared, updated pt and family on POC
--- NOTE | 2022-05-23 13:13 | SUR.PHASEII ---
[place] ambulance just notified us that they are being toned out so it will be longer for transport, notified family and pt, VSS, no needs at this time
--- NOTE | 2022-05-23 14:21 | SUR.PHASEII ---
[facility]aus here to transport pt
== END 2022-05-23 14:26 | disposition home or self-care (01) ==
PROVIDERS: Internal Medicine; PCP Nurse Practitioner Family; Visit Provider Internal Medicine Cardiovascular Disease
DX: I48.0 Paroxysmal atrial fibrillation (principal); I71.20 Thoracic aortic aneurysm, without rupture, unspecified; Z79.899 Other long term (current) drug therapy; E11.9 Type 2 diabetes mellitus without complications; I25.10 Atherosclerotic heart disease of native coronary artery without angina pectoris; I11.9 Hypertensive heart disease without heart failure; Z79.84 Long term (current) use of oral hypoglycemic drugs
CPT/HCPCS: 85025; 93312

== ENCOUNTER 2022-09-16 07:56 | Day surgery (SDC) | payer MEDICARE, SELFPAY ==
[2022-09-16 08:01] VITALS: BMI 38.2
--- NOTE | 2022-09-16 08:01 | ECG_ITS ---
APPROVED REPORT Exam: Resting ECG HR:80 bpm ECG Measurements Heart Rate 80 AXES QRSd 98 QRS 30 QT 369 T 107 QTc 404 Conclusion ATRIAL FIBRILLATION NONSPECIFIC T-WAVE ABNORMALITY ABNORMAL ECG UNCONFIRMED REPORT Electronically signed by : Adal Villanueva MD 09/16/2022 20:18:31
[2022-09-16 08:19] VITALS: BP 180/107; PULSE 83; RESP 18; TEMP 36.9; O2SAT 98
[2022-09-16 08:24] VITALS: PULSE 85
[2022-09-16 09:08] VITALS: BP 139/60; PULSE 71; RESP 16; O2SAT 87
[2022-09-16 09:11] VITALS: PULSE 74
--- NOTE | 2022-09-16 09:11 | ECG_ITS ---
APPROVED REPORT Exam: Resting ECG HR:75 bpm ECG Measurements Heart Rate 75 AXES QRSd 108 QRS 12 QT 397 T 65 QTc 426 Conclusion ATRIAL FIBRILLATION MODERATE T-WAVE ABNORMALITY, CONSIDER ANTERIOR ISCHEMIA [-0.1+ mV T-WAVE IN V3/V4] ABNORMAL ECG UNCONFIRMED REPORT Electronically signed by : Adal Villanueva MD 09/16/2022 20:18:17
[2022-09-16 09:15] VITALS: BP 118/57; PULSE 60; RESP 16; O2SAT 94
--- NOTE | 2022-09-16 09:31 | P.PCN_ITS ---
[facility] Cardioversion Cardioversion Date: 09/16/22 Provider:: TRUDI Candelaria Procedure Performed:: Synchronized electrical cardioversion Diagnosis:: Atrial flutter Procedure Summary:: Patient was brought to the cardiac [facility] as an outpatient. After informed consent was obtained, anesthesia provided sedation after which the patient received a single synchronized 120 J shock which converted him from atrial flutter to sinus rhythm with atrial couplets. Patient tolerated procedure with no complications. Complications:: None Conculsion:: Successful electrical cardioversion from atrial flutter to sinus rhythm
== END 2022-09-16 09:35 | disposition home or self-care (01) ==
PROVIDERS: PCP Nurse Practitioner Family; Visit Provider Internal Medicine
DX: I48.0 Paroxysmal atrial fibrillation (principal); Z79.02 Long term (current) use of antithrombotics/antiplatelets; Z79.4 Long term (current) use of insulin; E11.9 Type 2 diabetes mellitus without complications; I11.0 Hypertensive heart disease with heart failure; I50.32 Chronic diastolic (congestive) heart failure; D21.9 Benign neoplasm of connective and other soft tissue, unspecified; I71.20 Thoracic aortic aneurysm, without rupture, unspecified; Z79.899 Other long term (current) drug therapy
CPT/HCPCS: 92960; 93005

== ENCOUNTER 2023-08-25 11:42 | Outpatient (CLI) | payer MEDICARE, SELFPAY ==
[2023-08-25 12:20] LABS: Basophils # 0.1 K/mm3 (0-0.2); Basophils % 0.9 % (0.1-2.0); Eosinophils # 0.1 K/mm3 (0.0-0.4); Eosinophils % 1.8 % (0.1-12.0); Hematocrit 41.9 % (42.0-52.0); Hemoglobin 13.3 g/dL (14.1-18.0); Lymphocytes # 2.4 K/mm3 (0.7-4.5); Lymphocytes % 31.8 % (10-50); Mean Corpuscular HGB Conc 31.8 g/dL (31.8-35.4); Mean Corpuscular Hemoglobin 32.2 pg (27.0-31.2); Mean Corpuscular Volume 101.3 fl (80-94); Mean Platelet Volume 9.3 fl (7.4-10.4); Monocytes # 0.4 K/mm3 (0.1-1.0); Monocytes % 4.7 % (1.7-9.3); Neutrophils # 4.5 K/mm3 (1.8-7.8); Neutrophils % 60.8 % (37.0-80.0); Platelet Count 184 K/mm3 (142-424); Red Blood Count 4.14 M/mm3 (4.60-6.20); Red Cell Distribution Width 14.4 % (11.5-17.5); White Blood Count 7.5 K/mm3 (4.8-10.8)
[2023-08-25 12:39] LABS: Anion Gap 12.9 mEq/L (5-15); Blood Urea Nitrogen 32 mg/dl (9-20); Calcium 9.6 mg/dl (8.4-10.2); Carbon Dioxide 30 mmol/L (22.0-30.0); Chloride 101 mmol/L (98-107); Estimated Glomerular Filt Rate 40 ml/min (>60); GFR (African American) 49 ML/MIN (>60); Glucose 304 mg/dl (74-100); Potassium 4.9 mmoL/L (3.5-5.1); Sodium 139 mmol/L (136-145)
[2023-08-25 12:49] LABS: NT Pro Brain Natriuretic Pep. 426 pg/mL (0-125)
== END 2023-08-25 23:59 | disposition home or self-care (01) ==
LOC: LAB 11:43
PROVIDERS: Visit Provider Physician Assistant
DX: I50.32 Chronic diastolic (congestive) heart failure (principal); D21.9 Benign neoplasm of connective and other soft tissue, unspecified; R06.09 Other forms of dyspnea; R60.9 Edema, unspecified; I25.10 Atherosclerotic heart disease of native coronary artery without angina pectoris; E78.2 Mixed hyperlipidemia; E11.9 Type 2 diabetes mellitus without complications; Z79.4 Long term (current) use of insulin; I71.20 Thoracic aortic aneurysm, without rupture, unspecified; I50.9 Heart failure, unspecified; K21.9 Gastro-esophageal reflux disease without esophagitis
CPT/HCPCS: 36415; 80048; 83880; 84439; 84443; 85025

== ENCOUNTER 2023-09-11 08:43 | Outpatient (CLI) | payer MEDICARE, SELFPAY ==
--- NOTE | 2023-09-11 08:43 | CT_ITS ---
FINAL REPORT TECHNIQUE: The patient was injected with IV contrast. Axial images were obtained through the chest in a PE protocol. 3-D reconstruction images were also performed. Individualized dose reduction techniques using automated exposure control or adjustment of the MA and/or KV according to patient's size were employed. CLINICAL HISTORY: thoracic aortic aneurysm COMPARISON: 05/05/2022 FINDINGS: There is an ascending aortic aneurysm measuring 4.2 cm in diameter. The previously noted filling defect in the superior right atrium is less evident than on the prior exam probably related to resolving thrombus. There is no evidence of dissection. . There is no axillary adenopathy. There is no hilar or mediastinal adenopathy. There are multiple median sternotomy wires. The heart size is normal. There is no pericardial or pleural effusion. There is scarring or atelectasis at the lung bases. Limited images of the upper abdomen are unremarkable. IMPRESSION: 4.2 cm ascending aortic aneurysm. Filling defect right atrium less evident and consistent with resolving thrombus. Reviewed, Interpreted and Dictated by Robert Villarreal MD Transcribed by Nel Mendoza Authenticated and [facility]
--- NOTE | 2023-09-11 09:09 | CA_ITS ---
APPROVED REPORT EXAM: Comprehensive 2D, Doppler, and color-flow Echocardiogram [employer] Processor: Gabriela He RDCS Ht: 6 ft 1 in Wt: 329lbs BSA: 2.66 BP: 134/92 mmHg Indications: CAD,AF,SOA, CABG,HTN TDS SECONDARY TO BODY HABITUS M-Mode Dimensions RVDd 3.47 cm (0.9-2.6) LA Diam 4.62 cm (1.9-4.0) LVDd 6.61 cm (3.5-5.7) LVDs 5.58 cm (3.5-5.7) IVSd 0.75 cm (0.6-1.1) PWd 1.17 cm (0.6-1.1) EF (Teich) 32.10% FS 15.60% EDV (Teich) 224.40 mL ESV (Teich) 152.40 mL Aortic Valve HIMANSHU Index 0.55 cm2/m2 AoV Peak Hieu. 242.0 (50-130 cm/s) AO Peak GR. 23.50 mmHg AO Mean GR. 11.50 (<5 mmHg) AO VTI 40.5 (18-25 cm) HIMANSHU (VTI) 1.49 (2.5-4.5 cm2) Left Ventricle The left ventricle is normal size. The left ventricular systolic function is normal. The left ventricular ejection fraction is within the normal range. There is normal left ventricular wall thickness. There is normal LV segmental wall motion. The left ventricular diastolic function is normal. LVEF is 55%. Right Ventricle Right ventricle is moderately dilated. Right ventricle is mildly hypokinetic. Atria Left atrium is mildly dilated. The right atrium size is normal. No masses are visualized in the RA. There is no Doppler evidence of interatrial shunt. Aortic Valve The aortic valve is moderately thickened. Mild aortic stenosis. Peak velocity 2.6 m/s. Mean AV gradient 12 mmHg. Max AV gradient 25 mmHg. HIMANSHU is 1.7 cm2 by continuity equation Trace aortic regurgitation. Mitral Valve The mitral valve is normal in structure. No evidence of mitral valve stenosis. Mild mitral regurgitation. Tricuspid Valve The tricuspid valve leaflets are thin and pliable. Trace tricuspid regurgitation. RVSP is normal. Pulmonic Valve The pulmonary valve is normal in structure. Trace pulmonic regurgitation. Great Vessels The aortic root is normal in size. The ascending aorta is not well visualized. The IVC is not well visualized. Pericardium There is no pericardial effusion. Other Information Study Quality: Fair Conclusion Normal LV systolic function. Moderate RV dilation with mild reduction in RV function. Mild LA dilation. Mild MR. Mild (peak velocity 2.6 m/s. Mean AV gradient 12 mmHg. Max AV gradient 25 mmHg. HIMANSHU is 1.7 cm2 by continuity equation). No masses are visualized in the RA on this TTE (previous RA thrombus on [facility]UD[facility] from 05/2022). Electronically signed by : Fallon Garcia MD 09/15/2023 22:10:05
[2023-09-11] MEDS: SODIUM CHLORIDE 0.9% 10ML SYR (RAD ONLY) 10 ML IV (09:14)
[2023-09-11] MEDS: 0.9 % SODIUM CHLORIDE 50 ML VIAL IV (09:14)
[2023-09-11] MEDS: IOPAMIDOL-370 (76%);100ML BOTTLE 100 ML IV (09:14)
== END 2023-09-11 23:59 | disposition home or self-care (01) ==
LOC: RAD 08:43
PROVIDERS: PCP Nurse Practitioner Family; Visit Provider Physician Assistant
DX: D21.9 Benign neoplasm of connective and other soft tissue, unspecified; R06.09 Other forms of dyspnea; I50.32 Chronic diastolic (congestive) heart failure; I25.10 Atherosclerotic heart disease of native coronary artery without angina pectoris; E78.2 Mixed hyperlipidemia; E11.9 Type 2 diabetes mellitus without complications; Z79.4 Long term (current) use of insulin; I71.20 Thoracic aortic aneurysm, without rupture, unspecified; E66.9 Obesity, unspecified; I48.0 Paroxysmal atrial fibrillation; R60.9 Edema, unspecified; Z68.41 Body mass index [BMI] 40.0-44.9, adult
CPT/HCPCS: 71275; 93306; Q9967

== ENCOUNTER 2023-10-01 14:54 | Outpatient (CLI) | payer MEDICARE, SELFPAY ==
[2023-10-01 17:56] LABS: Free T4 (Free Thyroxine) 0.98 ng/dl (0.78-2.19)
[2023-10-01 18:21] LABS: Chloride 87 mmol/L (98-107); Potassium 3.5 mmoL/L (3.5-5.1); Sodium 131 mmol/L (136-145)
[2023-10-01 18:24] LABS: Blood Urea Nitrogen 73 mg/dl (9-20); Estimated Glomerular Filt Rate 30 ml/min (>60); GFR (African American) 36 ML/MIN (>60)
[2023-10-01 18:25] LABS: Anion Gap 19.5 mEq/L (5-15); Calcium 10.3 mg/dl (8.4-10.2); Carbon Dioxide 28 mmol/L (22.0-30.0)
[2023-10-01 18:40] LABS: Glucose 523 mg/dl (74-100)
== END 2023-10-01 23:59 | disposition home or self-care (01) ==
PROVIDERS: PCP Nurse Practitioner Family; Visit Provider Nurse Practitioner Family
DX: R60.9 Edema, unspecified (principal); R06.00 Dyspnea, unspecified; D21.9 Benign neoplasm of connective and other soft tissue, unspecified; I50.32 Chronic diastolic (congestive) heart failure; I25.10 Atherosclerotic heart disease of native coronary artery without angina pectoris; K21.9 Gastro-esophageal reflux disease without esophagitis; R06.09 Other forms of dyspnea; Z86.39 Personal history of other endocrine, nutritional and metabolic disease
CPT/HCPCS: 36415; 80048; 84439; 84443

== ENCOUNTER 2024-09-02 14:49 | Outpatient (CLI) | payer MEDICARE, SELFPAY ==
--- OUTSIDE RECORDS SUMMARY | 2024-09-02 14:51 | XMS_ITS | Data Portability ---
Author Organization [place] - [facility] ADMIN Address [address] [place] [id number] Care Team Providers Care Interlocking Installer Name Role Phone DAMARISDAYSI Primary Care Provider Assessment No assessment recorded. Plan of Treatment Reminders Order Date Submit Date Provider Last Modified By Organization Details Last Modified Time Details Appointments None recorded. Lab None recorded. Referral None recorded. Procedures None recorded. Surgeries None recorded. Imaging None recorded. Medication Orders prednisone 5 mg tablet 2023 024 [facility], [address] [place] [address], [address], 12:13:56 Patient TargetsNo targets recorded. Patient Instructions Encounter Date Encounter Id Patient Instructions Last Modified By Organization Details Last Modified Time 10/05/2023 [id number] I have personall y reviewed the data obtained and entered from the scribe, medical record retrieval specialist or nurse for this patient for this patient encounter. Patient with dizziness. Possible central versus peripheral vestibular dysfunction. Patient to proceed with further diagnostic evaluation, audio. Follow-up in 3-4 weeks. [email or web address] Not available 10/05/2023 12:14:31 Reason for Referral None Reported. Results Created Date Observation Date Name Description Value Unit Range Abnormal Flag Note LastModifiedBy Organization Detail LastModifiedTime 09/24/19 24 09/24/2023 CT orbit sella post fos ear wo [facility] al [address] [place] [address] Phone: Fax: Name: VINICIUS QUINONES Exam Date: 09/24/19 24 : 955 Age 68 years Gender : M Access ion: [id number] Physic pallavi: Donovan Boss Facili ty: Raúl rizvi [facility] al HSV: Outpat ient Exam: CT ORBIT SELLA POST FOS EAR WO CLINIC AL INFORM ATION: Right mastoi d and ear pain with hearin g loss for the last 7 days COMPAR ZIYAD: No compar ziyad availa ble. TECHNI QUE: Axial thin cut images were obtain ed throug h the tempor al bones. 2-D recons tructi ons were perfor med in the hatfield l and sagitt al planes . Dose reduct ion achiev ed by adjust ing mA and/or kV based on patien t size. FINDIN GS: Visual ized intrac ranial conten ts, orbits , and soft tissue s of the face/n arline grossl y unrema rkable . Mild chroni c parana geovanny sinusi tis is noted. TMJs are unrema rkable . Right tempor al bone: Mastoi d air cells and middle ear caviti es are clear. Audito ry ossicl es unrema rkable . Cochle ar vestib ular anatom y within normal limits . Gas Brazer al and showroom executive director al audito ry canals within normal limits . Left tempor al bone: Mastoi d air cells and middle ear caviti es are clear. Audito ry ossicl es unrema rkable . Cochle ar vestib ular anatom y within normal limits . Gas Brazer al and showroom executive director al audito ry canals within normal limits . IMPRES YUKO: 1. Normal study of the tempor al bones 2. Mild chroni c parana geovanny sinusi tis. Commun icatio n: Per this cliftonitte n report . This report is genera bari using voice recogn ition comput er softwa re. Inadve rtent errors may have occurr ed while dictat ing report . Common sense approa ch is apprec iated and do not hesita te to call for clarif icatio n when necess arnaud. Dictat ed By: JIN WALTERS Transc ribed By: Jin Walters Transc ribed On: 09/24/19 24 3:29 PM Electr onical ly signed by: JIN WALTERS 09/24/19 [facility] Legall y authen ticate d by Jin haro MD 09-23 15:29: 27 CC'ed Logic: Orderi ng Provid er: VENUS ETIENNE Attend ing Provid er: VENUS ETIENNE Referr ing Provid er: VENUS ETIENNE Admitt ing Provid er: VENUS ETIENNE [email or web address] [facility] (Imaging) [address] [facility], [place], [place], [address], 10/21/2023 08:40:58 10/26/19 24 10/26/2023 audio gram No observ ation record ed. [email or web address] Not Available 2023 10:50:13 Result Notes None recorded. Problems Name Problem SNOMED Code Status Onset Date Resolution Date Notes Provider Name and Address Organization Details Recorded Time Sensorineural hearing loss 81462819 Active 2023 HI ARIAS, AUD [address] [facility], [place], [address] , [place] - [facility] [place] & [place] 10:46:23 Asymmetrical sensorineural hearing loss 555029496 Active 2023 HI ARIAS, AUD [address] [facility], [place], [address] , [place] - [facility] [place] & [place] 10:49:37 Problem Notes None recorded. Procedures Surgical History Date Name Laterality Status Provider Name and Address Organization Details Recorded Time Knee arthroscopy/surger y completed Trini JOHNSTON - [facility] - [place] & [place] 10/05/2023 11:39:41 total knee replacement completed Trini JOHNSTON - [facility] - [place] & [place] 10/05/2023 11:39:55 open heart surgery completed Trini JOHNSTON - [facility] - [place] & [place] 10/05/2023 11:40:10 Stent Placement completed Trini JOHNSTON - [facility] - [place] & [place] 10/05/2023 11:40:56 prostatectomy completed Trini JOHNSTON - [facility] - [place] & [place] 10/05/2023 11:42:35 colonoscopy completed Trini JOHNSTON - [facility] - [place] & [place] 10/05/2023 11:42:55 Imaging Results Imaging Date Name Status LastModified by Organiz ation Details LastModified Time 09/24/2023 CT orbit sella post fos ear wo completed [address] (Imaging) [address] [facility], [place], [address], 10/21/2023 08:40:58 10/26/2023 audiogram completed [email or web address] Information no t available 10/26/2023 10:50:13 Procedure Notes None recorded. Medical Equipment None Reported. Allergies No known drug allergies Medications Name Sig Start Date Stop Date Status Note LastModified by Organization Details LastModified Time furosemide 40 mg tablet TAKE ONE (1) TABLET BY MOUTH DAILY NEEDED FOR WEIGHT GAIN active Not Available Not Available Not Available atorvastatin 40 mg tablet TAKE 1 TABLET BY MOUTH EVERY DAY active Not Available Not Available No t Available atorvastatin 80 mg tablet TAKE ONE HALF (1/2) TABLET BY MOUTH EVERY DAY active Not Available Not Available No t Available cetirizine 10 mg tablet TAKE ONE (1) TABLET BY MOUTH ONCE DAILY FOR 7 DAYS active Not Available Not Available N ot Available doxazosin 1 mg tablet TAKE ONE (1) TABLET TWICE A DAY BY ORAL ROUTE FOR 90 DAYS. active Not Available Not Available No t Available azithromycin 250 mg tablet TAKE 2 TABLETS TODAY THEN TAKE 1 TABLET DAILY FOR THE NEXT 4 DAYS active Not Available Not Available No t Available metoprolol tartrate 100 mg tablet TAKE ONE (1) TABLET BY MOUTH TWICE DAILY active Not Available Not Available Not Available amiodarone 200 mg tablet TAKE ONE (1) TABLET EVERY DAY BY ORAL ROUTE FOR 90 DAYS. active Not Available Not Available No t Available hydrocodone 5 mg-acetamino phen 325 mg tablet TAKE ONE (1) TABLET BY MOUTH THREE (3) TIMES A DAY NEEDED FOR PAIN active Not Available Not Available No t Available prednisone 20 mg tablet TAKE ONE (1) TABLET BY MOUTH ONCE DAILY FOR FIVE (5) DAYS active Not Available Not Available No t Available prednisone 5 mg tablet TAKE ONE TABLET BY MOUTH TWICE DAILY FOR SEVEN DAYS, THEN ONE TABLET BY MOUTH ONCE DAILY FOR SEVEN DAYS. active Not Available Not Available Not Available thiamine HCl (vitamin B1) 100 mg tablet TAKE ONE (1) TABLET EVERY DAY BY ORAL ROUTE FOR 90 DAYS. active Not Available Not Available No t Available potassium chloride ER 10 mEq tablet,exten ded release TAKE TWO (2) TABLET BY MOUTH EVERY DAY FOR 90 DAYS active Not Available Not Available Not Available aspirin 81 mg tablet,delay ed release TAKE ONE (1) TABLET EVERY DAY BY ORAL ROUTE FOR 90 DAYS. active Not Available Not Available No t Available levothyroxin e 88 mcg tablet TAKE ONE (1) TABLET BY MOUTH EVERY DAY active Not Available Not Available No t Available magnesium oxide 400 mg (241.3 mg magnesium) tablet TAKE ONE (1) TABLET EVERY DAY BY ORAL ROUTE, FOR 90. active Not Available Not Available No t Available cyanocobalam in (vit B-12) 500 mcg tablet TAKE ONE (1) TABLET EVERY DAY BY ORAL ROUTE FOR 90 DAYS. active Not Available Not Available No t Available gemfibrozil 600 mg tablet TAKE ONE (1) TABLET TWICE A DAY BY ORAL ROUTE FOR 90 DAYS. active Not Available Not Available No t Available pantoprazole 40 mg tablet,delay ed release TAKE ONE (1) TABLET EVERY DAY BY ORAL ROUTE FOR 90 DAYS. active Not Available Not Available No t Available metoprolol tartrate 50 mg tablet TAKE ONE (1) TABLET TWICE A DAY BY ORAL ROUTE FOR 90 DAYS. active Not Available Not Available No t Available Vitamin B-6 100 mg tablet Take 1 tablet every day by oral route. active Not Available Not Available No t Available hydrochlorot hiazide 25 mg tablet TAKE ONE (1) TABLET EVERY DAY BY ORAL ROUTE FOR 90 DAYS. active Not Available Not Available No t Available Novolog U-100 Insulin aspart 100 unit/mL subcutaneous solution INJECT MAX OF 200 UNITS DAILY VIA INSULIN PUMP active Not Available Not Available No t Available ferrous sulfate 325 mg (65 mg iron) tablet,delay ed release Take 1 tablet twice a day by oral route. active Not Available Not Available No t Available apple cider vinegar 500 mg tablet TAKE ONE (1) TABLET EVERY DAY BY ORAL ROUTE FOR 90 DAYS. active Not Available Not Available No t Available coenzyme Q10 200 mg capsule TAKE ONE (1) CAPSULE EVERY DAY BY ORAL ROUTE FOR 90 DAYS. active Not Available Not Available No t Available apple cider vinegar 300 mg tablet TAKE ONE (1) TABLET EVERY DAY BY ORAL ROUTE FOR 90 DAYS. active Not Available Not Available No t Available FeroSul 325 mg (65 mg iron) tablet TAKE ONE (1) TABLET TWICE A DAY BY ORAL ROUTE FOR 90 DAYS. active Not Available Not Available No t Available levocetirizi ne 5 mg tablet TAKE ONE (1) TABLET EVERY DAY BY ORAL ROUTE AT BEDTIME. active Not Available Not Available No t Available Vitamin D3 125 mcg (5,000 unit) tablet Take 1 tablet every day by oral route. active Not Available Not Available No t Available Vitamin B-1 (mononitrate ) 100 mg tablet Take 1 tablet every day by oral route. active Not Available Not Available No t Available potassium gluconate 550 mg (90 mg) tablet Take 1 tablet every day by oral route. active Not Available Not Available No t Available Eliquis 5 mg tablet TAKE ONE (1) TABLET BY MOUTH TWICE DAILY active Not Available Not Available Not Available Repatha SureClick 140 mg/mL subcutaneous pen injector INJECT 140 MG SUBCUTANEOU SLY EVERY TWO (2) WEEKS active Not Available Not Available No t Available Xhance 93 mcg/actuatio n breath activated aerosol SPRAY ONE (1) SPRAY TWICE A DAY BY INTRANASAL ROUTE. active Not Available Not Available No t Available Gvoke HypoPen 2-Pack 1 mg/0.2 mL subcutaneous auto-injecto r INJECT ONE (1) MG NEEDED BY SUBCUTANEOU S ROUTE. active Not Available Not Available No t Available Mounjaro 2.5 mg/0.5 mL subcutaneous pen injector INJECT TWO AND A HALF (2 & 1/2) MG EVERY WEEK BY SUBCUTANEOU S ROUTE. active Not Available Not Available No t Available Vitals Date Recorded Body height Body mass index (BMI) Body weight Body temperature Oxygen saturation Oxygen saturation in Arterial blood by Pulse oximetry Heart rate Respiratory rate Systolic blood pressure Diastolic blood pressure Provider Name and Address Organization Details Last Updated DateTime 4 185.42 cm 39.6 kg/m2 177607. 71 g 97.1 [degF] 91 % 91 % 108 /min 18 /min 121 mm[Hg] 76 mm[Hg] Trini JOHNSTON [facility] & [place] 11:25:00 Social History Question Answer Notes LastModified by Organizat ion Details LastModified Time Tobacco Smoking Status Never Smoker [facility] [place] 10/05/2023 11:39:05 What Is Your Level Of Alcohol Consumption? None [email or web address] Information not available 10/05/2023 What Is Your Level Of Caffeine Consumption? Occasional [email or web address] Information not available 10/05/2023 What Type Of Diet Are You Following? REGULAR [email or web address] Information not available 10/05/2023 Do You Use Any Illicit Or Recreational Drugs? No [email or web address] Information not available 10/05/2023 Do You Or Have You Ever Used Any Other Forms Of Tobacco Or Nicotine? No Information not available 10/05/2023 Sex: Unknown Functional Status Question Answer Note LastModified by Organization D etails LastModified Time What is your exercise level? None [email or web address] Information not available 10/05/2023 Mental Status None recorded. Family History Relationship Description Onset Age of this Age Resolved Age Notes LastModified by Organization Details LastModified Time Father Diabetes mellitus 63 [email or web address] Not available 12/17 11:17:45 Mother Cerebrovascu lar accident [email or web address] Not available 10/05/2023 11:38:44 Medical History No medical history recorded. Past Encounters Encounter ID Performer Location Encounter Start Date Encounter Closed Date Diagnosis/Indication Diagnosis SNOMED-CT Code Diagnosis ICD10 Code Diagnosis Note [id number] Bigg Smith MD [facility] [address] [place] [address] 10/05/2023 11:10:19 10/05/2023 12:09:43 Dizziness 420396774 R42 Sudden hearing loss 7947 1008 H91.20 Tinnitus 63867684 H93.13 [id number] [facility] [address] DOAN [address] [place] [address] 10/26/2023 10:17:53 10/26/2023 10:40:29 Asymmetrical sensorineural hearing loss 618774539 H90.5 [id number] [facility] [address] 12/18/2023 11:17:15 12/18/2023 11:38:37 Asymmetrical sensorineural hearing loss 153283445 H90.5 Health Concerns Section Related Observation LastModified by Organization Detai ls LastModified Time None Recorded Concern Status LastModified by Organization Details LastModified Time None Recorded Advance Directives Directive None Recorded Payers Encounter Date Sequence Insurance Name Policy Number Policy Hicks Covered Member ID Hicks Member ID Guarantor Name 10/05/2023 2 [place] H[place] [id number] Vinicius D Cristhian [id number] Vinicius D Cristhian 10/05/2023 1 [place] Vinicius D Cristhian [id number] Vinicius D Cristhian 10/26/2023 2 [place] [id number] Vinicius D Cristhian [id number] Vinicius D Cristhian 10/26/2023 1 [place] Vinicius D Cristhian [id number] Vinicius D Cristhian 12/18/2023 2 [place] [id number] Vinicius D Cristhian [id number] Vinicius D Cristhian 12/18/2023 1 [place] Vinicius D Cristhian [id number] Vinicius D Cristhian Notes Date Note Type Note Provider Name and Address Organization Details Recorded Time 10/05/2023 text/html Patient is here for right ear blockage, cerumen impaction for the last three weeks, Has hearing loss due to the impaction, buzzing noise.Patient presents for evaluation and management of acute onset of hearing loss associated with ringing in the ear and dizziness that occurred about 3 weeks ago. Patient seen in the emergency room and CT scan done. Patient states was normal. Patient was placed on steroids. Patient has persistent of symptoms despite medical management. Bigg Smith MD [address] [place] [address],[address], [place], [address], [place] - [facility] & [place] 10/05/2023 12:14:58 10/26/2023 text/html Mr. Morrow wa s seen today for an audiologic evaluation due to recent and sudden hearing loss in the RE per Dr. Bigg Smith MD. Mr. Morrow reports that he awoke with severe hearing loss in the RE approx. 9 weeks ago. He reports that his CT scan was negative, and he has noted no change after steroid use. He denies hearing loss in the LE. Audiometric testing revealed a mild high freq SNHL in the LE with good word rec scores. Findings in the RE revealed a profound hearing loss. 1-Discussed findings with Mr. Morrow. 2-Rec CROS hearing aids to improve communication; medical clearance needed. 3-F/u hearing testing in 6 months to monitor or sooner if deemed necessary by Dr. Smith. HI ARIAS, AUD [address] [facility], [place], [address], [place] - [facility] & [place] 10/26/2023 10:50:18 12/18/2023 text/html Patient was seen today for a hearing aid fitting HI ARIAS, AUD [address] [facility],[address], [place], [address], [place] - [facility] [place] & [place] 12/18/2023 11:40:17
--- NOTE | 2024-09-02 15:00 | CT_ITS ---
FINAL REPORT TECHNIQUE: The patient was injected with IV contrast. Axial images were obtained through the chest in a PE protocol. 3-D reconstruction images were also performed. Individualized dose reduction techniques using automated exposure control or adjustment of the MA and/or KV according to patient's size were employed. This study was performed with techniques to keep radiation doses as low as reasonably achievable (ALARA). Individualized dose reduction techniques using automated exposure control or adjustment of mA and/or kV according to the patient's size were employed. CLINICAL HISTORY: thoracic aneurysm COMPARISON: 09/11/2023 FINDINGS: Mediastinal vasculature is adequately opacified. There is streak artifact secondary to median sternotomy wires. A prior CABG procedure has been performed. The thoracic ascending aortic aneurysm seen on the prior CT is once again identified, stable in size measuring 4.2 cm in diameter. Linear scarring is present in the lung larose bilaterally. There is no axillary adenopathy. There is no hilar or mediastinal adenopathy. The heart size is normal. Mild thyromegaly is once again noted, stable. There is no pericardial or pleural effusion. Limited images of the upper abdomen are unremarkable. No suspicious infiltrate or nodule is identified. IMPRESSION: No significant change in the size or appearance of the thoracic ascending aortic aneurysm when compared to the prior CT of 09/11/2023, the aneurysm again measuring 4.2 cm in diameter. Reviewed, Interpreted and Dictated by Robert Villarreal MD Transcribed by Maya Seay Authenticated and [facility]
[2024-09-02 15:22] LABS: Blood Urea Nitrogen 33 mg/dl (9-20); Estimated Glomerular Filt Rate 43 ml/min (>60); GFR (African American) 52 ML/MIN (>60)
[2024-09-02] MEDS: 0.9 % SODIUM CHLORIDE 50 ML VIAL IV (15:51)
[2024-09-02] MEDS: IOPAMIDOL-370 (76%);100ML BOTTLE 100 ML IV (15:52)
[2024-09-02] MEDS: SODIUM CHLORIDE 0.9% 10ML SYR (RAD ONLY) 10 ML IV (15:52)
== END 2024-09-02 23:59 | disposition home or self-care (01) ==
LOC: RAD 14:50
PROVIDERS: PCP Nurse Practitioner Family; Visit Provider Physician Assistant
DX: I71.20 Thoracic aortic aneurysm, without rupture, unspecified (principal)
CPT/HCPCS: 36415; 71275; 82565; 84520; Q9967